=== PATIENT | male | born 1950 | race Caucasian/White ===

== ENCOUNTER → 2016-08-25 | Outpatient (CLI) | payer BC, MEDICARE ==
[~2016-08-25] MED LIST: ASPIRIN EC81 MG PO; COLACE100 MG PO; CORDARONE,PACE200 MG PO; COREG6.25 MG PO; CUBICIN (NON-F500 MG IV; FISH OIL 1,0001 EAC1 PO; GLUCOPHAGE500 MG PO; HYZAAR 100-12.1 EACH PO; HYZAAR 50-12.51 EACH PO; K-TAB 10MEQ10 MEQ PO; LASIX40 MG PO; MIRALAX17 GM PO; NITROSTAT0.4 MG SL; NORCO 10-325 T1 EACH PO; NORVASC5 MG PO; PRAVACHOL80 MG PO; REGLAN5 MG PO; STOOL SOFTENER1 EACH PO; TYLENOL EXTRA500 MG PO
== END | disposition disaster alternative care site (69) ==
LOC: GOPD 08-18 12:30
PROC: 3E0R33Z Introduction of Anti-inflammatory into Spinal Canal, Percutaneous Approach (ICD-10-PCS; principal; 2016-08-25)
PROC: 3E0R3BZ Introduction of Anesthetic Agent into Spinal Canal, Percutaneous Approach (ICD-10-PCS; 2016-08-25)
DX: M47.816 Spondylosis without myelopathy or radiculopathy, lumbar region (principal); M43.16 Spondylolisthesis, lumbar region; M48.06 Spinal stenosis, lumbar region; M54.9 Dorsalgia, unspecified
CPT/HCPCS: J1040

== ENCOUNTER → 2016-11-11 | Outpatient (CLI) | payer BC, MEDICARE | END | disposition disaster alternative care site (69) | LOC: GRAD 09:22 | DX: E04.1 Nontoxic single thyroid nodule (principal) ==

== ENCOUNTER 2016-11-17 23:47 | Inpatient (IN) | payer BC, MEDICARE ==
[~2016-11-17] VITALS: Ht 165.1 cm; Wt 100.9 kg
--- NOTE | ~2016-11-17 | ECHO ---
Transesophageal Echocardiography Report (ARCHIE) Demographics Patient Name GARCIA FONSECA Date of Study 11/18/2016 Patient Number [id number] Visit Number [id number] Date of 1950 Room Number G6201 Gender Male Number Age 66 year(s) Referring Lia Wen MD Money Laundering Investigator Everette Castro RVT, Physician RDCS Physician Interpreting Halie Morenostephanie Scrape Gatherer Physician Supervising Ordering Physician Lia Wen MD, MD/P Nurse Stress Ticket Collector Or Usher Conclusions Summary Transesophageal echocardiogram was done under general anesthesia without difficult probe placement . Technically difficult exam as the patient was coughing through the procedure. The left ventricular systolic function appears normal The aortic valve leaflets appear thickened and calcified possibly due to degenerative/calcific changes. No obvious vegetation was seen; however, cannot exclude vegetation. There is mild aortic regurgitation by color Doppler. Mild-moderate mitral regurgitation by color Doppler. Mild calcification of the mitral valve. Moderate eccentric tricuspid regurgitation by color Doppler with estimated RVSP of 27 mm hg. The tricuspid valve appears mildly thickened. Clinical correlation is recommended. The findings were d/w Dr. Schmidt. Procedure Type of Study ARCHIE procedure Procedure Date Date: 11/18/2016 Start: 09:22 AM Study Location: Inpatient Portable Technical Quality: Good visualization Indications:Endocarditis. Additional Indications:Sepsis Appropriate Use Criteria: 8 Patient Status: Routine Rhythm: NSR HR: 78 bpm BP: 85/63 mmHg ARCHIE Performed By: the attending and the nnp Allergies - Other:(Morphine, Propoxyphene). Findings Right Ventricle Mildly dilated right ventricle. Left Atrium There is no LA or LA appendage thrombus or spontaneous contrast. The interatrial septum appears aneurysmal. There is no evidence of patent foramen ovale or atrial septal defect by color Doppler. Right Atrium The right atrium appears mildly dilated. Mitral Valve Mild-moderate mitral regurgitation by color Doppler. Mild calcification of the mitral valve. Aortic Valve The aortic valve leaflets appear thickened and calcified possibly due to degenerative/calcific changes. No obvious vegetation was seen; however, cannot exclude vegetation. There is mild aortic regurgitation by color Doppler. Tricuspid Valve Moderate eccentric tricuspid regurgitation by color Doppler with estimated RVSP of 27 mm hg. The tricuspid valve appears mildly thickened. Pulmonic Valve The pulmonic valve is not well visualized. Miscellaneous Mild thoracic aorta plaque. Contractility Score LV regional wall motion:(0-Non visualized 1-Normal 2-Hypokinesis 3-Akinesis 4-Dyskinesis 5-Aneurysm) Signature dtt: ADELA WALSH dtd: 11/18/16921 Physician Self Edit
--- NOTE | ~2016-11-17 | DS ---
PATIENT'S NAME: GARCIA FONSECA [facility] AGE: 66 Y [address] ROOM: G6303 [place], [place] [address] LOCATION: GPCU ADMIT DATE: 11/18/2016 Discharge Summary DISCHARGE DATE: 11/25/2016 FAMILY PHYSICIAN: Eleazar Andrade DO ATTENDING PHYSICIAN: Dong Fitzgerald FINAL DIAGNOSES: 1. Septic shock. 2. MSSA bacteremia, source unknown. 3. Essential hypertension. 4. Diabetes mellitus type 2. 5. Abdominal pain. 6. Diarrhea. 7. Elevated troponin. 8. Hypokalemia. 9. Cholelithiasis. 10. Coronary artery disease, status post coronary artery bypass graft. PROCEDURE: He had a PICC line placed on November 24, 2016. For details of admission, please see the history and physical dictated by Dr. Fitzgerald. In short, this is a 66-year-old white male who was transferred from [place] after he had presented to the hospital with epigastric pain and pain in his right upper quadrant and was found to be in septic shock. He was transferred here for further evaluation. He did have 4 blood cultures obtained in [place] that were positive for Gram-positive cocci. LABORATORY DATA: On admission, sodium 141, most prior to discharge 139. Potassium on admission was 3.9, got as low as 3.3, was 3.7 at discharge. BUN on admission was 22, discharge 11. Creatinine on admission 1.6, discharge 0.9. On admission, alkaline phosphatase 67, ALT 27, AST 37. ProBNP 9478. His initial troponin was 0.65. This was trended; did get as high as 0.920 and then decreased down to 0.171. Hemoglobin A1c was 7.4. White blood cell count on arrival to [facility] was 12.7 with a left shift, he had 37% bands; most prior to discharge is 7.1. Hemoglobin on admission was 12.6, discharge 11.8. Platelet count on admission was 154, got as low as 135, discharge 264. His procalcitonin on admission was 6.09. Urinalysis on admission did not show any evidence of infection and 0 to 2 whites, 0 to 2 reds. MICROBIOLOGY DATA: All cultures obtained here were negative that included urine, blood, and stool was checked for C. diff, which was negative. He also had a stool pathogen panel that was negative as well. RADIOLOGY STUDIES: He had a CT angiogram done on admission of the abdomen and it was found that all the major vessels were fine. There was no evidence of PATIENT'S NAME: GARCIA FONSECA [facility] AGE: 66 Y [address] ROOM: G6303 [place], [place] [address] LOCATION: GPCU ADMIT DATE: 11/18/2016 Discharge Summary DISCHARGE DATE: 11/25/2016 FAMILY PHYSICIAN: Eleazar Andrade DO ATTENDING PHYSICIAN: Dong Fitzgerald any ischemia. He did have fluid in his pelvis. His spleen, pancreas, and biliary tree were all normal. Ultrasound of the abdomen done on the showed a small amount of ascites in the upper abdomen, fatty liver, borderline splenomegaly. Chest x-ray on the done for cough did not show any evidence of infection. He did have bilateral effusions. An MRI of the left hip done for pain showed some edema in the superior left sacral ala, no evidence of an abscess. Otherwise, there were no abnormalities with the hip. Dental Panorex was negative for any abscess. Repeat CT scan of the abdomen done on November 22 showed that his biliary tree was nondilated. He did not have any adenopathy. He did have mild pleural effusions. MRCP done to evaluate the biliary tree did not show any intra or extrahepatic biliary dilation. He had cholelithiasis. MRI showed that he had a small pleural effusion. CARDIOVASCULAR DATA: A ARCHIE done on the second hospital day did not show any evidence of a distinct vegetation. There was some mild thickening of the aortic leaflets, but no vegetation. HOSPITAL COURSE: The patient was admitted into the intensive care unit with a diagnosis of septic shock. He was given aggressive IV hydration. He was given IV Zosyn, Levaquin, gentamicin and also given a dose of vancomycin. He was put on a pressor for blood pressure support. His electrolytes were checked, and his magnesium and potassium were replaced. A ARCHIE was done to rule out vegetation and there was no distinct vegetation seen. He did complain of significant abdominal pain at that time. An ultrasound was obtained and Surgery was asked to see him. His gentamicin and Levaquin were stopped, and he was continued on the IV vancomycin and Zosyn. There was concern about acute cholecystitis. Surgery was asked to see the patient. A repeat CT scan was done because of increased pain to rule out any vascular leak that was negative. Surgery did see him and did not feel that he was symptomatic from his gallbladder. The ultrasound did not show any evidence of cholecystitis. When the ID came back that it was methicillin-sensitive Staph, vancomycin and Zosyn were discontinued, and he was started on IV nafcillin. He did complain of left hip pain and MRI was done to rule out any evidence of infection in the hip. Unfortunately, source was still not found, so Panorex of the oral cavity was done looking for an abscess, which returned negative. Repeat CT scan of the abdomen and pelvis was done because of persistent pain. There was concern whether he had ischemia. GI was asked to see him and they continued to not be able to find any source. We did get a PICC line in him because based upon the fact that we could not find a primary source of infection, that he would need 4 weeks of IV antibiotics. In discussion with Surgery and GI, we decided to do an MRCP to make sure that there was no evidence of any biliary issue and returned negative. It was felt that he was stable for discharge on November 25. It was noted that he had had some increased fluid. He was diuresed with IV Bumex for 2 days in a row and had nice output. Based upon the fact that we wanted to try and give once a day PATIENT'S NAME: GARCIA FONSECA [facility] AGE: 66 Y [address] ROOM: [place] [address] LOCATION: GPCU ADMIT DATE: 11/18/2016 Discharge Summary DISCHARGE DATE: 11/25/2016 FAMILY PHYSICIAN: Eleazar Andrade DO ATTENDING PHYSICIAN: Dong Fitzgerald antibiotics as an outpatient, the patient was switched to daptomycin. His blood pressures were high. His Cozaar dose was increased during the hospital stay. It was felt that he was stable for discharge and discharged to home on the with arrangements for him to get daily daptomycin at the [facility]. He is to see Dr. Andrade in 7 days. He is having a diabetic diet. He was asked to refrain from work while he is on the IV antibiotics. The patient was noted to have an elevated troponin on admission. It was felt that this was due to cardiac demand from him being shocky. The plan is that once he has completed with his IV antibiotics that he have an outpatient stress test, which will be arranged by Dr. Eleazar Andrade. DISCHARGE MEDICATIONS: 1. Daptomycin 600 mg IV daily through December 16. 2. Aspirin 81 mg daily. 3. Pravachol 80 mg daily. 4. Coreg 6.25 mg twice daily. 5. Glucophage 1000 mg twice daily. 6. Ames-3 fish oil 1000 mg daily. 7. Hyzaar 50/12.5 one pill daily, which is a dose increase for him. 8. Norvasc 5 mg daily. ZAMZAM A MD RAMON LAW/modl /[id number] CC: Eleazar Andrade [facility] d: 11/26/16 1004 t: 11/28/16 1426, DISCHARGE SUMMARY
--- NOTE | ~2016-11-17 | ECHO ---
Transthoracic Echocardiography Report (TTE) Demographics Patient Name GARCIA FONSECA Date of Study 11/22/2016 Patient Number [id number] Visit Number [id number] Date of 1950 Room Number G6303 Accession Number [id number] Gender Male Age 66 year(s) Referring Raymond Delgado DO Consumer Advocate Marge Sheehan RVT Physician Roxana Wen MD Physician Interpreting Julia Mccormick MD Chief Mate Physician Supervising Ordering Physician Roxana Schilling MD/LEXI VAN Nurse Stress Sheep Boner Conclusions Summary Technically difficult exam. The estimated left ventricular ejection fraction is 25-30%. Diastolic function indeterminate due to patient's arrhythmia. Mildly reduced right ventricular function. The left atrium is mildly dilated The right atrium is mild to moderately dilated. IVC measures 1.86 cm with partial inspiratory collapse. Mild mitral annular calcification. Mild calcification of the mitral valve. Mild mitral regurgitation by color Doppler. The aortic valve is moderately sclerotic. There is mild to moderate aortic regurgitation by color Doppler. Trivial tricuspid regurgitation by color Doppler. There is moderate pulmonary hypertension. The pulmonary pressure (RVSP) is 54 mmHg. Procedure Type of Study TTE procedure:2D Echocardiogram. Procedure Date Date: 11/22/2016 Start: 04:04 PM Study Location: Inpatient Portable Technical Quality: Adequate visualization Indications:Elevated Troponin. Appropriate Use Criteria: 9 Patient Status: Routine HR: 68 bpm Allergies - Other:(Morphine, Propoxyphene). M-Mode/2D Measurements LV Diastolic Dimension: 5.21 cm LV Systolic Dimension: 4.75 cm LV Septum Diastolic: 2.07 cm LV PW Diastolic: 1.34 cm AO Root Dimension: 2.2 cm Cardiac Output: 1.78 l/min AV Cusp Separation: 1.4 cm RV Diastolic Dimension: 3.16 cm LA volume: 114 ml LVOT: 1.8 cm RV Base: 3.28 cm LVOT VTI: 10.3 cm RV Mid: 2.76 cm LV Stroke volume: 26.2 ml TAPSE: 1.58 cm TDI-S': 8.22 cm/s Doppler Measurements AV Peak Velocity: 1.63 m/s MV Peak E-Wave: 1.13 m/s AV Peak Gradient: 10.63 mmHg AV Mean Gradient: 5 mmHg MV P1/2t: 50 msec LVOT Peak Velocity: 0.66 m/s TR Velocity:3.11 m/s PV Peak Velocity: 0.98 m/s TR Gradient:38.69 mmHg PV Peak Gradient: 3.86 mmHg Estimated RAP:15 mmHg Estimated PASP: 53.69 mmHg Estimated RVSP: 54 mmHg A' Septal Velocity: 0.04 m/s E' Septal Velocity: 0.05 m/s A' Lateral Velocity: 0.04 m/s E' Lateral Velocity: 0.09 m/s Findings Left Ventricle Mild to moderate concentric left ventricular hypertrophy. Diastolic function indeterminate due to patient's arrhythmia. Anterior wall and septum show moderate to severe hypokinesis Right Ventricle Mildly reduced right ventricular function. Left Atrium The left atrium is mildly dilated. Right Atrium The right atrium is mild to moderately dilated. IVC measures 1.86 cm with partial inspiratory collapse. Mitral Valve Mild mitral annular calcification. Mild calcification of the mitral valve. Mild to moderate mitral regurgitation by color Doppler. Aortic Valve The aortic valve is moderately sclerotic. There is mild aortic regurgitation by color Doppler. Tricuspid Valve Mild tricuspid regurgitation by color Doppler. There is moderate pulmonary hypertension. The pulmonary pressure (RVSP) is 54 mmHg. Pulmonic Valve Normal pulmonic valve structure and function. Pericardial Effusion No evidence of pericardial effusion. Miscellaneous Visualized portions of the aortic root and ascending aorta appear normal in size. Pleural Effusion No evidence of pleural effusion. Contractility Score LV regional wall motion:(0-Non visualized 1-Normal 2-Hypokinesis 3-Akinesis 4-Dyskinesis 5-Aneurysm) Signature dtt: Jace Dumont (cardio) dtd: 11/22/16 1604 Physician Self Edit
--- NOTE | ~2016-11-17 | HP ---
PATIENT'S NAME: GARCIA FONSECA [facility] AGE: 66 Y [address] ROOM: [address] [place] [address] LOCATION: [facility] ADMIT DATE: 11/18/2016 History & Physical DISCHARGE DATE: FAMILY PHYSICIAN: PHYSICIAN, UNKNOWN ATTENDING PHYSICIAN: SRIKANTH SALGUERO DATE OF SERVICE: CHIEF COMPLAINT: Chills, abdominal pain and not feeling well in general. HISTORY OF PRESENT ILLNESS: This is a 66-year-old male who says that 2 days ago after having lunch, the patient felt left upper quadrant pain with radiation to the epigastric area and then to the right upper quadrant. He says the pain was about 4/10 to 6/10 intensity and felt like crampy type of pain that would come and go and it felt like indigestion. He denies any nausea or vomiting or chest pain or shortness of breath at that time. Because of this problem, the patient went to [facility] yesterday for evaluation. At [facility], the patient had a chest x-ray and a CT scan of the chest and also CT abdomen and pelvis including KUB and only remarkable findings were some questionable gallbladder sludge and/or punctate stones without cholecystitis and small hiatal hernia as well as some atelectasis in the left lung base. EKG showed a complete right bundle-branch block which is unchanged from previous one. No acute ischemic findings. Four bottles of blood cultures were obtained in [facility] and today they came back positive with gram-positive cocci pending final species. The patient was also found to be hypotensive today with systolic blood pressure in the 80s, MAP in the low 60s, heart rate in the low 90's and also became febrile with temperature as high as 103 today in [facility] despite the fact that his abdominal pain was improving. Due to the concern for Staph bacteremia, patient was referred here for further care for concern of endocarditis. The patient has a history of coronary artery disease, underwent CABG back in January 2016 and also had a cardiac stent placed to the RCA back in September 1999. Ever since the bypass surgery, patient has been doing well without any complaint of chest pain or shortness of breath. His last bowel movement was roughly 2-3 days ago. It was a little bit loose according to the patient. REVIEW OF SYSTEMS: As mentioned in the history of present illness. All other systems were reviewed and were negative except those mentioned in the history of present illness. PAST MEDICAL HISTORY: 1. Coronary artery disease status post open heart surgery bypass in January PATIENT'S NAME: GARCIA FONSECA [facility] AGE: 66 Y [address] ROOM: [id number] [place], [place] [address] LOCATION: [facility] ADMIT DATE: 11/18/2016 History & Physical DISCHARGE DATE: FAMILY PHYSICIAN: PHYSICIAN, UNKNOWN ATTENDING PHYSICIAN: SRIKANTH SALGUERO 2015 and also had cardiac stents placed to the RCA back in September 1999. 2. Diabetes type 2. 3. Hypertension. 4. Hyperlipidemia. 5. Most recent cardiac cath was in January 2016 and was deferred for open- heart surgery CABG which was done on January 2016. ALLERGIES: DARVOCET AND MORPHINE. HOME MEDICATIONS: Currently is being reconciled. SOCIAL HISTORY: The patient denies any alcohol, illegal drug or cigarette use. FAMILY HISTORY: Father had melanoma and mother had myocardial infarction at age 40. PAST SURGICAL HISTORY: 1. Bypass surgery of the heart in January 2016. 2. Cardiac stent to the RCA back in September 1999. 3. Tonsillectomy. PHYSICAL EXAMINATION: VITAL SIGNS: At the time of my evaluation, temperature was 99, heart rate was 88, respiration 16, blood pressure 131/86, saturation was 98% on room air. GENERAL APPEARANCE: The patient looks acutely ill and alert and oriented x3. Currently, in no acute distress, but the patient looks acutely ill. HEENT: Pupils are equally round and reactive to light. Extraocular muscles intact. Anicteric sclerae. Nasal turbinates are normal bilaterally. Moist oral mucosa. NECK: No JVD. CARDIOVASCULAR: Cannot appreciate obvious murmur. Normal S1, S2. No rubs. No gallops. Regular rate and rhythm. RESPIRATORY: Clear to auscultation. No rales. No rhonchi. No wheezing. No crackles. ABDOMEN: Obese, mildly tender to palpation in the epigastric area. No mass. Bowel sounds present. Nondistended. Soft. No abdominal rigidity. EXTREMITIES: No edema in upper or lower extremities. SKIN: He has a little bit of cyanosis in each toes of both feet that are blanchable. I do not appreciate any Osler's nodes or Janeway lesion or splinter hemorrhage or petechia on skin findings. NEUROLOGICAL: Grossly nonfocal. PATIENT'S NAME: GARCIA FONSECA [facility] AGE: 66 Y [address] ROOM: [address] [place] [address] LOCATION: [facility] ADMIT DATE: 11/18/2016 History & Physical DISCHARGE DATE: FAMILY PHYSICIAN: PHYSICIAN, UNKNOWN ATTENDING PHYSICIAN: SRIKANTH SALGUERO LABORATORY DATA: Currently, our labs are pending. Blood work from the outside facility 4 sets blood culture obtained on 11/17/2016 from [facility]. All 4 sets came back positive for gram-positive cocci. Final species pending. Influenza screen on 11/17/2016 negative. Blood work from 11/17/2016 from the outside facility showed lactic acid 1.9. Urinalysis negative. Lipase 21. Sodium 136, potassium 3.7, chloride 100, CO2 28, glucose 143, BUN 14, creatinine 0.78, GFR more than 60. Calcium 8.7, total protein 6.9, albumin 4.3, total bilirubin 0.5, alkaline phosphatase 71, AST 20, ALT 16, white blood cell 11.3, hemoglobin 13.5, hematocrit 40, platelet 240, amylase 47, troponin 0.04. IMAGING STUDIES: CT of the chest with contrast on 11/17/2016 at 9:52 p.m. showed no evidence of pulmonary infection. Reflux of contrast from the right atrium into the upper IVC and hepatic veins. This is nonspecific, but suggestive of a right heart dysfunction. KUB on 11/16/2016 at 5:54 p.m. showed mild cardiomegaly, otherwise negative. CT of the abdomen and pelvis with contrast on 11/16/2016 at 10:05 p.m. showed no acute pathology. Questionable gallbladder sludge and/or punctate stones without cholecystitis. Small hiatal hernia. KUB again on 11/17/2016 at 1:55 p.m. showed nonspecific bowel pattern without obstruction. Chest x-ray on 11/17/2016 at 7:56 a.m. showed limited inspiration. Patchy infiltrate in the left lung base. On CT of the chest, it was read as atelectasis. EKG on admission here on 11/18/2016 at 1:46 a.m. showed sinus rhythm, heart rate 86 with a complete right bundle branch block and this is unchanged from the previous EKG. No acute ischemic findings compared to the prior EKG. IMPRESSION: 1. Regarding his severe sepsis detected at 2:34AM of 11/18/16 and sepsis order set completed and charted) from gram positive cocci bacteremia (4 bottles from [facility] on 11/17/16) and concerning for endocarditis: Covering empirically for bacteremia broad coverage and also covering for possible endocarditis. The patient does have positive blood cultures from [facility], please follow up with [facility] for final species, in addition, will get 3 sets blood cultures here from different sites as part of endocarditis work ups. I could not appreciate PATIENT'S NAME: GARCIA FONSECA [facility] AGE: 66 Y [address] ROOM: [place] [address] LOCATION: [facility] ADMIT DATE: 11/18/2016 History & Physical DISCHARGE DATE: FAMILY PHYSICIAN: PHYSICIAN, UNKNOWN ATTENDING PHYSICIAN: SRIKANTH SALGUERO murmur, but he does have fever and CABG was roughly a year ago, he could be at risk for endocarditis due to gram positive cocci concerning for staph bacteremia. Will put n.p.o. Can have ice chips. Get Cardiology consult. Dr. Kelly Villatoro is the primary store standards associate (i spoke to Dr Segovia overnight and plan will be ARCHIE by Dr Ambrose around 9 AM). We will cover him with IV vancomycin, IV Levaquin, IV Zosyn, and also with IV gentamicin. This covered broadly for bacteremia and also covered for endocarditis. IV fluids for hydration. Start him on vasopressor if necessary (so far has not required). Further plan will depend on clinical course. CT abd/pelv and chest from [facility] were unremarkable and no obvious source of fever. 2. Regarding his abdominal pain: From the CT scan of abdomen and pelvis from the outside facility in [facility] only showed small hiatal hernia. We will treat him with IV Protonix. He has a benign abdominal exam based on my examination. Questionable gallbladder sludge on ct abd/pelv from [facility]. Right upper quadrant just very mildly tender. Either way, he is on Zosyn and this is a good coverage. 3. Regarding his troponin elevation with history of coronary artery disease status post CABG in January 2016 and cardiac stent to the RCA back in September 1999: Telemetry monitoring. No chest pain. EKG with unchanged RBBB and no acute ischemia. I will continue home medications and I spoke to Dr Segovia, the troponin elevation is from demand ischemia there no need for heparin drip. I will cycle cardiac enzymes in the morning. We will follow up with Dr. Kelly Villatoro in the morning for consultation. 4. Regarding hid KRISTA: Is from prerenal azotemia from severe sepsis and will continue IV hydration, place a rooney for strict I/O, and renal panel in AM. 5. Regarding his type 2 diabetes: Check A1c. We will do subcu regular insulin every 4 hours for diabetic control while n.p.o. and titrate as needed. 6. Regarding his hypertension: Hold off on the blood pressure medications for now in the setting of severe sepsis. 7. Regarding his hyperlipidemia: Continue statin. 8. He is a full code. 9. Deep venous thrombosis prophylaxis: Heparin SC TID 5000 units. Time spent in care on the day of admission 80 minutes where 25 minutes was spent on chart review. The rest of the time was spent on interview and physical examination and also on counseling. The counseling includes going over the plan of care with the patient and addressing all the question and concerns that the patient had and also going over the plan of care with the nurse and with the patient. I answered all of the questions that the patient had to his satisfaction. I also spoke to Dr. Segovia about plan of care. Further plan will depend on clinical course. PATIENT'S NAME: GARCIA FONSECA [facility] AGE: 66 Y [address] ROOM: [place] [address] LOCATION: [facility] ADMIT DATE: 11/18/2016 History & Physical DISCHARGE DATE: FAMILY PHYSICIAN: PHYSICIAN, UNKNOWN ATTENDING PHYSICIAN: SRIKANTH SALGUERO SRIKANTH SALGUERO MD CC/modl /[id number] D: [id number] T: 631 HISTORY & PHYSICAL
--- NOTE | ~2016-11-17 | CON ---
PATIENT'S NAME: GARCIA FONSECA [facility] AGE: 66 Y [address] ROOM: [address] [address] LOCATION: [facility] ADMIT DATE: 11/18/2016 Consultation DISCHARGE DATE: FAMILY PHYSICIAN: Eleazar Andrade DO ATTENDING PHYSICIAN: SRIKANTH SALGUERO DATE OF CONSULTATION: 11/22/2016 REFERRING PHYSICIAN: Manny CASIANO MD REFERRING PROVIDER: Bouchra Schmidt MD. REASON FOR CONSULTATION: Abdominal pain, rule out ischemia. HISTORY OF PRESENT ILLNESS: This is a 66-year-old gentleman who was admitted with left upper quadrant pain with radiation to the epigastric area as well as right upper quadrant. He states that the pain has progressively worsened over the past 2 days, rating at 6/10. He describes the pain as a crampy type pain that would come and go, as he felt initially it was related to indigestion. Denies any associated nausea, vomiting, chest pain, or shortness of breath. Due to this problem, the patient was transferred from [facility]. At [place], chest x- ray and CT were also completed as well as CT of abdomen and pelvis with findings including questionable gallbladder sludge and/or punctate stones without cholecystitis, a small hiatal hernia was seen as well as atelectasis in the left lung base. No acute ischemic findings were seen. The patient also had gram-positive cocci and final species and was found to be hypotensive. He was then transferred to [facility] and placed in intensive care for resuscitation due to the concern for Staph bacteremia. The patient does have a history of coronary artery disease undergoing CABG in January 2016, was two cardiac stent placement in RCA back in September of 1999. The patient was seen and examined while in intensive care. He does complain of intermittent cramping like pain that he states is throughout his abdomen. A repeat CT scan is pending to rule out ischemia. Denies any other associated nausea, vomiting, fever, chills with this. On admission, he did have a fever of 103. He also denies any change in his bowel habits per his recollection. PAST MEDICAL HISTORY: Coronary artery disease, status post open-heart surgery, bypass in January of 2016 and cardiac stents into the RCA in September of 1999; diabetes mellitus type 2; hypertension; and hyperlipidemia. PAST SURGICAL HISTORY: PATIENT'S NAME: GARCIA FONSECA [facility] AGE: 66 Y [address] ROOM: [place] [address] LOCATION: [facility] ADMIT DATE: 11/18/2016 Consultation DISCHARGE DATE: FAMILY PHYSICIAN: Eleazar Andrade DO ATTENDING PHYSICIAN: SRIKANTH SALGUERO Coronary artery bypass graft in January 2016, cardiac stenting in the RCA in September of 1999, tonsillectomy. He denies any upper endoscopy or colonoscopy. SOCIAL HISTORY: The patient denies any ongoing toxic habits. FAMILY HISTORY: The patient's father had melanoma. The patient's mother had myocardial infarction at the age of 40. ALLERGIES: DARVOCET AND MORPHINE. CURRENT MEDICATIONS: Please refer to the medication administration record. REVIEW OF SYSTEMS: A 12-point review of systems was completed. All were negative except for those identified in the history of present illness. PHYSICAL EXAMINATION: GENERAL: A very pleasant 66-year-old gentleman lying in bed, who appears to be in no acute distress. VITAL SIGNS: Temperature 98.4, pulse of 64, respirations of 24, blood pressure 138/65, oxygen saturations 97% on room air. SKIN: [place], warm, dry. No jaundice. HEENT: Head is normocephalic and atraumatic. Pupils are equal, round, and reactive to light. Sclerae are clear and nonicteric. Oral mucosa is pink and moist. No thyromegaly. NECK: Soft and supple. CARDIOVASCULAR: Regular. Normal S1, S2. RESPIRATORY: Respirations even and unlabored. Lungs are clear to auscultation. ABDOMEN: Soft, round, distended, and tender throughout. No rebound, rigidity, or guarding noted. Bowel sounds are positive. MUSCULOSKELETAL: No muscle weakness or atrophy. EXTREMITIES: No edema. NEUROLOGIC: Grossly nonfocal. LABS AND DIAGNOSTICS: Current repeat CT scan is pending at this time. Laboratory obtained at [facility] does include a white blood cell count of 6.1, hemoglobin of 11.3 and stable, hematocrit of 34.2, and platelets of 161. Chemistry panel includes a glucose of 298, BUN of 10, creatinine of 1.0. Sodium 139, potassium of 3.4, chloride of 102, CO2 of 31, albumin of 2.3. The patient's PATIENT'S NAME: GARCIA FONSECA [facility] AGE: 66 Y [address] ROOM: [id number] [place], [place] [address] LOCATION: [facility] ADMIT DATE: 11/18/2016 Consultation DISCHARGE DATE: FAMILY PHYSICIAN: Eleazar Andrade DO ATTENDING PHYSICIAN: SRIKANTH SALGUERO liver function tests on admission were AST of 37, ALT of 27, alkaline phosphatase of 67, total bilirubin 1.4. Most recent check completed on 11/21/2016 shows increase of AST to 101, ALT increased to 85, alkaline phosphatase of 309, total bilirubin of 1.6. Amylase was 38, lipase was 202. Current repeat CT scan is pending to rule out ischemia. ASSESSMENT AND PLAN: Again, this is a pleasant 66-year-old gentleman who was admitted with septic shock and MSSA bacteremia as well as the abdominal pain. Source of the MSSA sepsis is unknown at this time. Abdominal pain has been evaluated as well as a repeat CT scan will be completed today to rule out ischemic bowel and/or colitis. At this time, this was discussed with Dr. Bouchra cShmidt. We will await for CT and review this with our radiologist. Further recommendations to be given after receipt of the CAT scan. Thank you for this consult. DARIAN SINGH APRN FOR [facility]/modl /[id number] d: 11/23/16 1403 t: 11/28/16 1756, CONSULTATION REPORT
[~2016-11-17 23:47] MED LIST changes: -CUBICIN (NON-F500 MG IV
[2016-11-18] MEDS ORDERED: PRAVACHOL80 MG PO (00:42)
[2016-11-18 01:39] LABS: BILIRUBIN URINE NEGATIVE (NEGATIVE); BLOOD URINE 10 /UL (NEGATIVE); COLOR URINE YELLOW (YELLOW); GLUCOSE URINE NEGATIVE (NEGATIVE); KETONE URINE NEGATIVE (NEGATIVE); LEUKOCYTES URINE NEGATIVE /UL (NEGATIVE); NITRITE URINE NEGATIVE (NEGATIVE); PROTEIN URINE 100 mg/dL (NEGATIVE); SPEC GRAVITY URINE 1.015 (1.003-1.035); TURBIDITY URINE CLEAR (CLEAR); UROBILINOGEN URINE NORMAL (NORMAL)
[2016-11-18 01:50] LABS: AMORPHOUS URINE 1+ (NEGATIVE); EPITHELIAL URINE 0-2 #/HPF (NEGATIVE); RBC URINE 0-2 #/HPF (NEGATIVE); WBC URINE 0-2 #/HPF (NEGATIVE)
[2016-11-18 01:51] LABS: BACTERIA URINE RARE (NEGATIVE)
[2016-11-18 02:45] LABS: HEMATOCRIT 37.5 % (37.0-53.0); HEMOGLOBIN 12.6 g/dL (11.0-16.0); MCH 31.9 pg (27.0-34.0); MCHC 33.6 gm/dL (32.0-36.5); MCV 94.9 fl (83.0-98.0); MPV 10.5 fl (9.4-12.4); PLATELET COUNT 154 K/uL (150-450); RBC 3.95 M/uL (3.50-5.50); RDW-CV 13.9 % (11.9-14.6); WBC 12.7 K/uL (4.0-11.0)
[2016-11-18 03:03] LABS: INR - (THERAPEUTIC) 1.13 (0.92-1.07); PROTIME 11.9 SECONDS (9.8-11.4); PTT 29 SECONDS (25-32)
[2016-11-18 03:11] LABS: ALBUMIN 3.2 gm/dL (3.5-5.0); ANION GAP 14.9 (10.0-19.0); CALCIUM 7.6 mg/dL (8.5-10.5); CREATININE 1.6 mg/dL (0.6-1.3); POTASSIUM 3.9 mMol/L (3.7-5.1); TOTAL BILIRUBIN 1.4 mg/dL (0.0-1.5); TOTAL PROTEIN 6.4 g/dL (6.0-8.4)
[2016-11-18 03:50] LABS: ABSOLUTE NEUTROPHIL CT (ANC) 12.2 K/uL (1.4-9.0); BANDED NEUTROPHIL # 4.7 K/uL (0.0-0.1); BANDED NEUTROPHILS % 37 %; LYMPHOCYTE # 0.4 K/uL (0.8-4.0); LYMPHOCYTE % 3 %; SEGMENTED NEUTROPHIL # 7.5 K/uL (1.4-9.0); SEGMENTED NEUTROPHIL % 59 %
--- NOTE | 2016-11-18 04:01 | NUR ---
Significant Event: PATIENT ADMITTED TO ICU AT 0030. VSS CURRENTLY ON 1L PER NC. PT O2 DROPS DOWN TO 87% WHILE RESTING. WHILE AWAKE PT O2 95-98%. HR'S 70'S-80'S. SBP 100'S-120'S. MAPS GREATER THAN 65. TMAX 99.0. 1+ EDEMA TO BILATERAL ANKLES. ACTIVE BS. NO BM, PT STATES FOR 3 DAYS. PASSING GAS. CORNELIUS PLACED WTIH LOW UOP. 2PIV'S WITH AXB AND NS 100ML/HR. Follow up: ECHO
[2016-11-18 07:04] LABS: HEMATOCRIT 33.3 % (37.0-53.0); HEMOGLOBIN 11.4 g/dL (11.0-16.0); MCHC 34.2 gm/dL (32.0-36.5); MCV 93.5 fl (83.0-98.0); MPV 10.6 fl (9.4-12.4); RBC 3.56 M/uL (3.50-5.50); RDW-CV 13.8 % (11.9-14.6); WBC 11.1 K/uL (4.0-11.0)
[2016-11-18 07:36] LABS: ANION GAP 11.6 (10.0-19.0); CALCIUM 7.8 mg/dL (8.5-10.5); CREATININE 1.3 mg/dL (0.6-1.3); POTASSIUM 3.6 mMol/L (3.7-5.1)
--- NOTE | 2016-11-18 16:23 | NUR ---
Significant Event: PT ALERT AND ORIENTED. NEURO INTACT. VITAL SIGNS STABLE. ORDER TO KEEP MAPS GREATER THAN 65. 1+EDEMA TO BILATERAL ANKLES. AFEBRILE. O2 D/C'D THIS SHIFT. NON-PRODUCTIVE COUGH AT TIMES. TACHYPNEIC WITH RATES FROM 24-30. CORNELIUS PATENT; NOW DRAINING CLOUDY, LIGHT YELLOW URINE WITH SEDIMENT. LAST BM ON 11/15. NO NAUSEA THIS SHIFT. IV'S TO L)AC AND L)HAND INTACT. INTERMITTENT ANTIBIOTICS. NORMAL SALINE INFUSING AT 100 ML/HR. DENIES ANY PAIN. MAY BE UP TOLERATED. ARCHIE DONE AT BEDSIDE THIS MORNING PER , WITH NO COMPLICATIONS NOTED. REGULAR DIET; ATE 100% OF LUNCH. Q4H ACCUCHECKS WITH MILD SLIDING SCALE. Follow up: CONTINUE TO MONITOR
--- NOTE | 2016-11-18 16:53 | NUR ---
Introduced self and role of care management to pt. He lives in [place] but works in [place]. His pcp is Dr Mooney in [place]. He states he has a 2 daughters and one he is close to. He states he is active and works at [employer]. At this time they are trying to find the source of infection. Will continue to follow and assist as needed.
--- NOTE | 2016-11-19 04:04 | NUR ---
Significant Event: A/O. HR 60-90'S. PVC'S. SBP WNL. TMAX OF 102.6. HAD INCREASED ABDOMINAL PAIN, BLOATING, CONSTIPATION. NOTIFIED DR. SALGUERO. GAVE DULCOLAX SUPP, NO RESULTS. GAS-X GIVEN, NO RELIEF. FENTANYL X1 WITH RELIEF. CTA OF ABDOMEN NEGATIVE. TAP WATER ENEMA X1 GIVEN, SCANT STOOL AFTER. DID NOT WANT TO TAKE ANY FURTHER LAXATIVES OVERNIGHT. ACTIVE/HYPERACTIVE BOWEL SOUNDS. DENIES NAUSEA. NO FURTHER C/O PAIN. RA TO 2L O2. TYLENOL GIVEN X1 FOR TEMP. 1PA TO BATHROOM. Follow up: MONITOR FOR BM.
[2016-11-19 06:07] LABS: HEMATOCRIT 33.6 % (37.0-53.0); HEMOGLOBIN 11.1 g/dL (11.0-16.0); MCH 31.4 pg (27.0-34.0); MCV 95.2 fl (83.0-98.0); MPV 10.8 fl (9.4-12.4); PLATELET COUNT 135 K/uL (150-450); RBC 3.53 M/uL (3.50-5.50); RDW-CV 14.2 % (11.9-14.6)
[2016-11-19 06:19] LABS: ALBUMIN 2.6 gm/dL (3.5-5.0); ANION GAP 9.7 (10.0-19.0); CALCIUM 7.9 mg/dL (8.5-10.5); CREATININE 1.2 mg/dL (0.6-1.3); MAGNESIUM 2.2 mg/dL (1.8-2.6); POTASSIUM 3.7 mMol/L (3.7-5.1)
[2016-11-19 06:25] LABS: PHOSPHORUS 1.7 mg/dL (2.5-4.9)
[2016-11-19 07:07] LABS: ABSOLUTE NEUTROPHIL CT (ANC) 6.8 K/uL (1.4-9.0); BANDED NEUTROPHIL # 3.3 K/uL (0.0-0.1); BANDED NEUTROPHILS % 41 %; LYMPHOCYTE % 12 %; MONOCYTE # 0.2 K/uL (0.0-1.0); SEGMENTED NEUTROPHIL # 3.5 K/uL (1.4-9.0); SEGMENTED NEUTROPHIL % 44 %
[2016-11-19 07:48] LABS: ALBUMIN 2.5 gm/dL (3.5-5.0)
[2016-11-19 07:50] LABS: TOTAL BILIRUBIN 1.1 mg/dL (0.0-1.5)
--- NOTE | 2016-11-19 16:06 | NUR ---
Significant Event: PATIENT IS A/O x3. COMPLAINS OF THE RUQ PAIN. PERRLA. SR WITH HRs 60S-70S, IRREGULAR, AFIBRILE, +1 GENERALIZED EDEMA. LUNGS SOUNDS ARE CLEAR THROUGHOUT, SPONTANEOUS, NON PRODUCTIVE COUGH, RR 20S-30S. BOWEL SOUNDS HYPERACTIVE, RUQ PAIN, ROUND SEMI FIRM STOMACH, ULTRASOUND DONE OF THE ABD. GAS NOTED, 3 SMALL WATERY BM, ENEMA GIVEN PREVIOUS SHIFT. LOW-FAT DIET STARTED, NO APPETITE. CORNELIUS WITH 600ML CONCENTRATED UOP. Follow up: CONTINUE.
--- NOTE | 2016-11-20 07:04 | NUR ---
Hemodynamicall stable overnight. Slept well.
--- NOTE | 2016-11-20 08:09 | NUR ---
Significant Event: A/O. HR 57-70'S. SBP 110-130'S. TMAX OF 100.8, GAVE TYLENOL X1, TEM P99'S AFTER. LUNGS WERE WHEEZESAT BEGINNING OF SHIFT, CLEAR THIS AM. BOWEL SOUNDS HYPO AND HYPERACTIVE AT TIMES. BM X2, SMALL. C.DIFF NEGATIVE. UOP 450ML. C/O ABDOMINAL PAIN X2, DILAUDID GIVEN X2 WITH RELIEF. UP WITH 1PA. REFUSED TO TURN TO SIDES. IN RECLINER. Follow up: CONTINUE TO MONITOR
--- NOTE | 2016-11-20 16:29 | NUR ---
Significant Event: Patient is A/O x3. SR, irregular, HRs 60s-80s, Max temp 99.9. +1 generalized edema. Lungs are slightly course and wheezy, with a productive cough, cream colored sputum. Complains of SOB at times with gastric problems. Bowel sounds are hyperactive in uppers, hypoactive in lower quadrants. Patient is having RUQ pain, pressure, and bloating, small loose bm, bleching, decreased appetite, pain relieved by gas-x and dilaudid. Romano removed. Lasix given, 1850ml out. Follow up: Continue.
[2016-11-21 05:16] LABS: BASOPHIL % 0.5 %; EOSINOPHIL # 0.1 K/uL (0.0-0.5); EOSINOPHIL % 1.8 %; HEMATOCRIT 34.2 % (37.0-53.0); HEMOGLOBIN 11.3 g/dL (11.0-16.0); IMMATURE GRANULOCYTE % 0.5 %; LYMPHOCYTE % 15.7 %; MCH 30.5 pg (27.0-34.0); MCV 92.2 fl (83.0-98.0); MONOCYTE # 0.8 K/uL (0.0-1.0); MONOCYTE % 13.9 %; MPV 10.4 fl (9.4-12.4); NEUTROPHIL # (ANC) 4.1 K/uL (1.4-9.0); NEUTROPHIL % 67.6 %; NRBC % 0 /100WBC (0-0.00); PLATELET COUNT 161 K/uL (150-450); RBC 3.71 M/uL (3.50-5.50); RDW-CV 14.3 % (11.9-14.6); WBC 6.1 K/uL (4.0-11.0)
--- NOTE | 2016-11-21 05:19 | NUR ---
Significant Event:A/O X3. TMAX 101.0. TYLENOL GIVEN X1. RA. SBPS 110S-140S. HR 60S-70S. DILAUDID GIVEN X2 FOR ABDOMINAL PAIN. BOWEL SOUNDS ACTIVE TO HYPOACTIVE. 1 BM. ADEQUATE UOP. RA. LUNG SOUNDS WHEEZE IN UPPERS IN AT BEGINNING OF SHIFT, CLEAR AND DIM AT AT 0300 ASSESSMENT. 1 ASSIST. Follow up: CONTINUE
[2016-11-21 05:35] LABS: ALBUMIN 2.4 gm/dL (3.5-5.0); ANION GAP 9.3 (10.0-19.0); CALCIUM 8.1 mg/dL (8.5-10.5); POTASSIUM 3.3 mMol/L (3.7-5.1); TOTAL PROTEIN 6.2 g/dL (6.0-8.4)
[2016-11-21 05:36] LABS: TOTAL BILIRUBIN 1.6 mg/dL (0.0-1.5)
--- NOTE | 2016-11-21 13:26 | NUR ---
1320 PATIENT REFUSED BATH. UNCOMFORTABLE RIGHT NOW WITH ABDOMINAL PRESSURE.
--- NOTE | 2016-11-21 16:47 | NUR ---
PATIENT WAS HAVING A TREMOR UPON ARRIVAL AND WAS AGITATED. HE THREW HIS JELLO AND FOAM SOAP ACROSS THE ROOM. HE DID CALM DOWN TO DRINK WATER AND TAKE MEDS WITH APPLESAUCE AND THEN FELL ASLEEP. HE RECIEVED A BATH AND WAS PUT IN THE CHAIR. HE IS ON ROOM AIR AND PIV IS SALINE LOCKED. PATIENT IS AAOX1 TODAY. HE IS VERY LETHARGIC AND HAS SLEPT THE ENTIRE DAY. HE HAS RESPONDED TO THE FACT THAT HE DID NOT WANT ANYTHING TO EAT. RN DID GET HIM TO EAT SERBERT AND IS WAITING FOR DINNER TRAY. PATIENT HAS HAD TWO MILD TREMOR EPISODES WHERE ATIVAN WAS NOT NECESSARY TO GIVE. PRESSURES HAVE BEEN UP FROM SYSTOLIC OF 120-160. PLANS ARE FOR DISCHARGE BACK TO [facility] TOMORROW.
--- NOTE | 2016-11-21 17:00 | NUR ---
PATIENT IS AAOX3. HE CAN MOVES ALL EXTREMITIES AND FOLLOW COMMANDS. HE HAS PRESSURE AND BLOATING IN HIS ABDOMEN AND LEFT HIP. HE WENT FOR A MRI AND ALSO A CHEST X-RAY FOR COUGH. HE IS ON ROOM AIR BUT HAS A HIGH RESPIRATION RATE DUE TO PRESSURE OF ABDOMEN. HE IS ON A LOW FAT DIET BUT HAS HAD A DECREASE IN APPETITE. HE ATE BREAKFAST BUT NOT LUNCH. HIS LUNGS SOUND CLEAR AND HAS ACTIVE BOWEL SOUNDS. HE VOIDS TO URINAL (HAD LASIX) THIS MORNING. HE ALSO HAD A SMALL BOWEL MOVEMENT. HE HAS BEEN IN THE CHAIR ALL DAY BECAUSE IT IS MORE COMFORTABLET TO HIM. HE REFUSED A SHOWER (WAS IN PAIN AT THE TIME).
--- NOTE | 2016-11-21 17:48 | NUR ---
PATIENT IS AAOX3. HE FOLLOWS COMMANDS AND MOVES ALL EXTREMITIES. HE IS EXTREME PAIN FROM HIS SURGERY. HE HAS A VINICIUS DRAIN THAT IS DRAINING SEROUS AND SEROUSANG DRAINAGE. GAUZE AND PAPERTAPE WERE TAKEN OFF BY MD BARRETO THIS MORNING AND RN CHANGED DRESSING 4X TODAY. PEPPERMINT WAS PLACED ON GAUZE TO HELP WITH SMELL FROM DRAINAGE. PATIENT IS ON ROOM AIR AND DIET TOLERATED. PATIENT HAS CHOSEN TO ONLY DRINK WATER, CRANBERRY JUICE, AND A POPCYCLE. HE HAS ONLY ASKED FOR PAIN MEDICATION ONCE. HE HAD A BATH THIS MORNING AND ASKED TO WALK THE UNIT TODAY, BUT HAS MOSTLY SLEEP IN CHAIR. VOIDS TO URINAL AND HAS PORTABLE TELLY ON CURRENTLY.
--- NOTE | 2016-11-22 06:00 | NUR ---
Significant Event: The Patient is Alert and Oriented x3, slightly forgetful at times. Up with 1 assist, gaitbelt and walker. Denies N/T. Moves all extremities spontaneously and to command. Stiff gait. Accu checks Q4H. VSS. On room air. Bruising to arms and abdomen. Pain to his abdomen and back gave IV Dilaudid last at 2323, and Tylenol PO last at 0201. PIV to the Right Forearm saline locked. Follow up:
--- NOTE | 2016-11-22 10:56 | NUR ---
A - PT SEEN D/T LOS. NO NEW LABS. PT W/ 1+ BLE EDEMA. DIET: LOW FAT, INTAKE 0-40%. PT STATES APPETITE BETTER THIS AM, ATE 100% OF BF. RECEPTIVE TO ENSURE QD. D - AT RISK W/ INADEQUATE ORAL INTAKE R/T DECREASED APPETITE AEB INTAKE RECORD. I - GOAL: 75% OR BETTER INTAKE BY DISMISSAL. M/E - WILL SEND STRAWBERRY ENSURE W/ LUNCH AND F/U IN 3-5 DAYS.
[2016-11-22 11:25] LABS: ALBUMIN 2.3 gm/dL (3.5-5.0); ANION GAP 9.4 (10.0-19.0); CALCIUM 8.2 mg/dL (8.5-10.5); MAGNESIUM 2.3 mg/dL (1.8-2.6); PHOSPHORUS 2.7 mg/dL (2.5-4.9); POTASSIUM 3.4 mMol/L (3.7-5.1)
--- NOTE | 2016-11-22 18:20 | NUR ---
Significant Event: PT ALERT AND ORIENTED X3. VITAL SIGNS STABLE; ON ROOM AIR. GENERALIZED EDEMA. DOES HAVE A PRODUCTIVE COUGH AT TIMES. SHORT OF BREATH WITH ACTIVITY. TRANSFERS WITH 1-ASSIST/GAIT BELT. VOIDS PER URINAL/TOILET. 3 LOOSE BM'S THIS SHIFT. ABDOMEN REMAINS TENDER/PAINFUL AT TIMES; MD'S ARE AWARE OF THIS. IV TO R)FA SALINE LOCKED; INTERMITTENT ANTIBIOTICS. PANOREX SCAN OF ORAL CAVITY, 2-D ECHO, AND CT OF ABDOMEN/PELVIS DONE THIS SHIFT. Q4H ACCUCHECKS WITH MILD SLIDING SCALE. REGULAR DIET; GOOD APPETITE. TOOK A SHOWER THIS MORNING PER OCCUPATIONAL THERAPY. PRN IV DILAUDID GIVEN FOR ABDOMINAL PAIN, WITH RELIEF. HAS BEEN IN THE CHAIR ALL SHIFT. Follow up: TRANSFER TO U TONIGHT?
[2016-11-23 05:22] LABS: HEMATOCRIT 35.5 % (37.0-53.0); HEMOGLOBIN 11.8 g/dL (11.0-16.0); MCH 30.4 pg (27.0-34.0); MCHC 33.2 gm/dL (32.0-36.5); MCV 91.5 fl (83.0-98.0); MPV 10.2 fl (9.4-12.4); RBC 3.88 M/uL (3.50-5.50); RDW-CV 14.5 % (11.9-14.6); WBC 7.1 K/uL (4.0-11.0)
[2016-11-23 05:23] LABS: PLATELET COUNT 264 K/uL (150-450)
[2016-11-23 05:35] LABS: ALBUMIN 2.5 gm/dL (3.5-5.0); ANION GAP 11.2 (10.0-19.0); CALCIUM 8.2 mg/dL (8.5-10.5); CREATININE 0.9 mg/dL (0.6-1.3); MAGNESIUM 2.3 mg/dL (1.8-2.6); POTASSIUM 3.2 mMol/L (3.7-5.1); TOTAL BILIRUBIN 1.3 mg/dL (0.0-1.5); TOTAL PROTEIN 6.5 g/dL (6.0-8.4)
--- NOTE | 2016-11-23 05:48 | NUR ---
Significant Event: DILAUDID GIVEN FOR ABD PAIN EVERY 3-4HRS. THE DILAUDID HAS BEEN WEARING OFF AT ABOUT 3 HRS. IT DOES MAKE HIM DROWSY VERY QUICKLY. A NEW IV WAS PLACED WITH DIFFICULTY. HE GETS UP WITH STANDBY ASSIST TO BR. HE HAD 2 LOOSE BMs. REMAINS ON ROOM AIR. Follow up:
[2016-11-23 05:50] LABS: LYMPHOCYTE # 1.1 K/uL (0.8-4.0); LYMPHOCYTE % 15 %; MONOCYTE # 0.6 K/uL (0.0-1.0); SEGMENTED NEUTROPHIL # 4.2 K/uL (1.4-9.0); SEGMENTED NEUTROPHIL % 59 %
[2016-11-23 05:51] LABS: BANDED NEUTROPHIL # 0.9 K/uL (0.0-0.1); BANDED NEUTROPHILS % 12 %
--- NOTE | 2016-11-23 13:05 | NUR ---
Social visit with pt today. He states still trying to figure out where the infection is. He still is having abdominal pain at times. I did discuss dc plans and it sounds like he will need about 4 weeks of iv antibiotics but hoping it will not be every 4 hrs. HE lives alone but I discussed home health, infusion, outpt, swingbed. He states he will not need swingbed and plans on staying a couple weeks with Misti his daughter. WIll continue to follow.
--- NOTE | 2016-11-23 15:46 | NUR ---
I spoke with Dr Schmidt and she states it will be the nafcillin iv q4, she did not know if there was some type of continuous deal with this or not. I told her will check into it and there is one of the drugs that has a short stability but I am hoping this is not one of them. I then called [facility] and she will check into all this an with the benefits as well. Will continue to follow.
--- NOTE | 2016-11-23 16:02 | NUR ---
Significant Event: Patient A&O. Bp ran 180-130. Dr. Armen Friedman Hospitalist was notified. Patient is still having pain in abdomen with movement and after food. Dilaudid was given at 1210. Patient tolerated meals better than previous day. Follow up: PICC placement to be placed 9/7 in AM as ordered by Dr. Armen Friedman.
[2016-11-24 00:40] LABS: ADENOVIRUS F 40/41 Not Detected (Not Detect); ASTROVIRUS Not Detected (Not Detect); C DIFFICILE TOXIN A/B Not Detected (Not Detect); CAMPYLOBACTER SPECIES Not Detected (Not Detect); CRYPTOSPORIDIUM Not Detected (Not Detect); CYCLOSPORA CAYETANENSIS Not Detected (Not Detect); E. COLI (EPEC) Not Detected (Not Detect); E. COLI (ETEC) Not Detected (Not Detect); E. COLI (STEC) Not Detected (Not Detect); ENTAMOEBA HISTOLYTICA Not Detected (Not Detect); GIARDIA LAMBLIA Not Detected (Not Detect); PLESIOMONAS SPECIES Not Detected (Not Detect); SALMONELLA SPECIES Not Detected (Not Detect); SHIGELLA AND EIEC Not Detected (Not Detect); VIBRIO SPECIES Not Detected (Not Detect); YERSINIA ENTEROCOLITICA Not Detected (Not Detect)
[2016-11-24 00:41] LABS: NOROVIRUS GI/ GII Not Detected (Not Detect); ROTAVIRUS A Not Detected (Not Detect); SAPOVIRUS Not Detected (Not Detect)
[2016-11-24 04:29] LABS: ALBUMIN 2.5 gm/dL (3.5-5.0); ANION GAP 9.4 (10.0-19.0); CALCIUM 8.4 mg/dL (8.5-10.5); CREATININE 0.9 mg/dL (0.6-1.3); MAGNESIUM 2.6 mg/dL (1.8-2.6); PHOSPHORUS 3.3 mg/dL (2.5-4.9); POTASSIUM 3.4 mMol/L (3.7-5.1)
--- NOTE | 2016-11-24 07:27 | NUR ---
Significant Event: Patient is alert and oriented x 3. VSS on room air. Up with 1 assist, walker, and gait belt. Voids per urinal. BM x 1 this shift. Left wrist IV, saline locked. Receiving intermittent antibiotic. Dilaudid and Tylenol given for pain last at 0327. ACHS accuchecks. Patient is pleasant and cooperative with cares. Follow up: MRCP and PICC placement this am.
--- NOTE | 2016-11-24 16:16 | NUR ---
Worked on this for most part of the day. Jennifer RN with [facility] started home infusion for the nafcillin and pt should be covered at 100% but he lives alone and now his daughter is not wanting to help him at all so he said something about the swingbed if he has to. I then called Jaye and faxed the referral. Later I got a call from Dr Schmidt stating she can change it to daptomycin iv qd for 4 weeks and he can go outpt and that maybe better so he can go home. I explained will talk with Henrry and see but they may have to order the drug in as well. I then spoke with Jaye again and she stated they can not accept to swingbed till next week because his md is out and the other not willing to accept but could see if the new AUTO BODY REPAIR TECHNICIAN would but she just started this week. She also stated they need to order the nafcillin in and won't be in till Monday because the pharmacist is out till Monday and that is when it can get ordered. I then asked Jaye about outpt Daptomycin everyday. She states the same thing they can not get till Monday but will have Meghan work on the preaut for it and will know more tomorrow. In the meantime I spoke with Norman, pharmacist and asked about sending 3 days of the drug and then they reimurse us and he states they have done that and should not be a problem as long as they get it back. I then called Jaye regarding this about sending the drug and they reimburse us and she stated that could be very possible and will look into it. I then faxed the new order of Daptomycin. I spoke with pt and updated him that looking at outpt iv daptomycin everyday for 4 weeks at the hospital and he states he can get himself there everyday because his daughter does not want anything to do with this. I asked about a ride home and he states she will be available. I then called Ally with pharmacy because Norman was gone and updated her on this regarding the Daptomycin and she stated Crystal will be on the floor tomorrow. I did update DR Schmidt as well. WIll continue to follow.
--- NOTE | 2016-11-24 16:24 | NUR ---
Significant Event: PICC line placed RAC. MRI done today. Antibiotic changed today. K given po and bumex iv. Good uop. Back pain this am pain meds relieved. Pt had good bm loose today, got some gas out, abd feels better than yest. Follow up:
--- NOTE | 2016-11-24 17:13 | NUR ---
FMLA letter done for pt.
[2016-11-25 04:22] LABS: ALBUMIN 2.6 gm/dL (3.5-5.0); ANION GAP 10.7 (10.0-19.0); CALCIUM 8.4 mg/dL (8.5-10.5); CREATININE 0.9 mg/dL (0.6-1.3); MAGNESIUM 2.5 mg/dL (1.8-2.6); POTASSIUM 3.7 mMol/L (3.7-5.1)
--- NOTE | 2016-11-25 04:31 | NUR ---
Significant Event: A/O x3. Afebrile. C/O back pain and stomach pain. Tylenol x2 and ultram x1 given. VSS on RA. SBP 140-170s. HR 60-70s. BS 177, no coverage needed. Up 1 assist. BM x1. Follow up: continue to monitor per plan of care.
--- NOTE | 2016-11-25 09:01 | NUR ---
PT MOVED TO NO RISK INTAKE IMPROVED TO 100%. WILL CONT ENSURE AT LUNCH TO MAINTAIN NUTRITION STATUS. WILL F/U IN 7-10 DAYS.
--- NOTE | 2016-11-25 11:57 | NUR ---
Call to Jaye at [facility], she states that everything looks good on their end for Julio to come to them for outpatient IV Abxs needs but I would need to contact Karyna with scheduling to make sure of what time he needs to be there tomorrow morning. Phoned over to Karyna, set up time for Julio to come into them at 1000 tomorrow morning for his first IV Abxs infusion, confirmed this with Julio so he knows what time to be there at and where he needs to go. I told Karyna as soon as I had dismissal orders from I would get them faxed over to her. She was fine with this. Talked with Aleyda in our pharmacy dept, gave her information on where the billing was to go for the medications and also gave her the number to ANA PAULA Muñoz at the [facility] as well to work out the fine details of repayment vs reimbursement of the medications that we provide them. Per Jaye, the bill to the medications were to be sent to [facility] [address], [place] [address] ATTN Bhavana Quintero. Aleyda indicates that since we are a nonprofit company, she doesn't think that we can bill them, but she will work all of that out and handle it. Later got a call from Aleyda in our pharmacy that everything was set up and they were going to reimburse us the medication when they got their supply in. Also confirmed with her that Julio could transport the medication to the [facility] and that wouldn't be an issue. Aleyda states that it is up to the receiving facility to determine if that is fine or not and from what she was told, they didn't have a problem with Julio bringing in the medication when he got to town later this afternoon. Dismissal medications were printed. I updated to all of the above and let her know that daughter would be here at 1300 to pick him up. states she will be around as soon as she can. Also phoned daughter Misti as well via [employer] cell phone, she tells me that she can be here at 1300 to hot die picker her dad and take him home. Let her know that this was fine and we would work towards having his medications ready to go by then and also have his dismissal paperwork done as well. Shared with daughter that the medications that were being sent with them needed to go directly to the hospital [facility] in [place] as soon as they got to town and to do that before anything else. She voiced understanding to this. Let Aleyda in pharmacy know we were planning for a 1300 dismissal, she is going to get the medications ready and in a cooler as they have to stay cold and bring them up before 1300. Updated RN Scarlett to this as well. CM to continue to follow and assist. Dismissal medications will be faxed over to [facility] as soon as they are completed.
--- NOTE | 2016-11-25 12:04 | NUR ---
Significant Event: pt up in room and up to bathroom ok. PICC line ok. Loose bmsx2. Tylenol and norco given for back pain. Pt to go home today. Follow up:
--- NOTE | 2016-11-25 12:08 | NUR ---
MIGUEL ANGELLA Paperwork that was done by HUDSON Munguia was given directly to Julio by myself. Placed it in his dismissal bag per his request with the rest of his belongings that he would take home when he leaves.
[2016-11-25] MEDS ORDERED: CUBICIN (NON-F500 MG IV (12:50)
[2016-11-25] MEDS ORDERED: HYZAAR 50-12.51 EACH PO (12:55)
--- NOTE | 2016-11-25 13:53 | NUR ---
d-dr ord pt dc i-nurse did teaching on all meds with change explained, pharmacy brought up pt iv meds per cooler and given to daughter to take to sri now, picc line teaching done on cares and hospital will flush and change dressing, not to get it wet/ss infection/bleeding, told pt to call his dr if continues having loose bm or any worsening pain, low fat diet explained, r-pt states all understanding p-nurse took pt out to daughter car
--- NOTE | 2016-11-25 14:29 | NUR ---
Dismissal orders were completed and faxed over to [facility]. Elissa' daughter here to transport him. Pharmacy has delivered the medications up to his room to be taken with him to and he is to drop them off at [facility] upon his arrival to [facility]. CM to continue to follow and assist.
== END 2016-11-25 13:35 | disposition disaster alternative care site (69) | DRG 871 ==
LOC: GICU 23:47 → GPCU 11-18 00:28 → GICU 11-18 00:28 → GPCU 11-22 19:22
PROVIDERS: Internal Medicine; ADMIT Internal Medicine
PROC: 02HV33Z Insertion of Infusion Device into Superior Vena Cava, Percutaneous Approach (ICD-10-PCS; principal; 2016-11-24)
DX: A41.01 Sepsis due to Methicillin susceptible Staphylococcus aureus (principal); R65.21 Severe sepsis with septic shock; J90 Pleural effusion, not elsewhere classified; R18.8 Other ascites; I10 Essential (primary) hypertension; E11.9 Type 2 diabetes mellitus without complications; E87.6 Hypokalemia; K80.20 Calculus of gallbladder without cholecystitis without obstruction; I25.10 Atherosclerotic heart disease of native coronary artery without angina pectoris; Z95.1 Presence of aortocoronary bypass graft; K76.0 Fatty (change of) liver, not elsewhere classified; R16.1 Splenomegaly, not elsewhere classified; Z88.5 Allergy status to narcotic agent; E78.5 Hyperlipidemia, unspecified; Z79.82 Long term (current) use of aspirin; Z79.84 Long term (current) use of oral hypoglycemic drugs
CPT/HCPCS: C1751; C9113; J0878; J1170; J1580; J1644; J1940; J1956; J2405; J2543; J3010; J3370; J3475; J7030; J7040; J7050; J7060; Q9967

== ENCOUNTER → 2016-11-17 | Outpatient (CLI) | payer BC, MEDICARE | END | disposition disaster alternative care site (69) | LOC: GAIR 23:26 | DX: I10 Essential (primary) hypertension (principal); R53.81 Other malaise; R06.02 Shortness of breath; R05 Cough; B96.89 Other specified bacterial agents as the cause of diseases classified elsewhere; I95.9 Hypotension, unspecified; E11.8 Type 2 diabetes mellitus with unspecified complications; Z95.1 Presence of aortocoronary bypass graft; Z79.891 Long term (current) use of opiate analgesic; Z79.82 Long term (current) use of aspirin; Z79.899 Other long term (current) drug therapy | CPT/HCPCS: A0422; A0431; A0436 ==